=== PATIENT | male | born 1995 | race Caucasian/White ===

== ENCOUNTER 2017-05-15 16:05 | Emergency (ER) | payer BC, OTHER ==
[2017-05-15 16:20] VITALS: BP 126/77; PULSE 96; RESP 14; TEMP 97.3; O2SAT 96
== END 2017-05-15 17:22 | disposition left against medical advice (07) ==
DX: Z53.21 Procedure and treatment not carried out due to patient leaving prior to being seen by health care provider (principal)

== ENCOUNTER 2017-05-15 18:11 | Emergency (ER) | payer BC, OTHER ==
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
[2017-05-15] MEDS ORDERED: CYCLOBENZAPRINE 10MG PREPACK#3 BTL TAKEHOME ONE (21:21)
[2017-05-15 21:52] VITALS: BP 131/84; PULSE 67; RESP 16; TEMP 98.1; O2SAT 97
== END 2017-05-15 21:52 | disposition home or self-care (01) ==
DX: S00.03XA Contusion of scalp, initial encounter (principal); M62.838 Other muscle spasm; W22.8XXA Striking against or struck by other objects, initial encounter; Y99.8 Other external cause status; Y93.89 Activity, other specified